=== PATIENT | female | born 1975 | race Caucasian/White ===

== ENCOUNTER 2025-02-04 09:15 | Day surgery (SDC) | payer BC ==
[~2025-02-04 09:15] MED LIST: Sodium Chloride 0.9% 10 ML Syringe FLUSH PRN; Sodium Chloride 0.9% 2.5 ML Syringe FLUSH PRN; Sodium Chloride 0.9% 20 ML SDV IV PRN
[2025-02-04] MEDS: Lactated Ringers 1,000 ML IV SCH (09:45)
[2025-02-04] MEDS ORDERED: Lidocaine 1% 5 ML VIAL ONE (10:37)
[2025-02-04] MEDS ORDERED: propofoL 500 MG/50 ML 50 ML ONE (10:38)
== END 2025-02-04 12:30 | disposition home or self-care (01) ==
LOC: MW.SDS 09:15
PROVIDERS: ATTEND Surgery
DX: Z12.11 Encounter for screening for malignant neoplasm of colon (principal); F41.1 Generalized anxiety disorder; Z80.0 Family history of malignant neoplasm of digestive organs; Z79.899 Other long term (current) drug therapy
CPT/HCPCS: 81025; J2003; J2704; J7120

== ENCOUNTER 2025-03-22 13:23 | Emergency (ER) | payer BC ==
[2025-03-22 14:45] LABS: CORONAVIRUS COVID-19 NAA NEGATIVE (NEGATIVE); INFLUENZA A NAA NEGATIVE (NEGATIVE); INFLUENZA B NAA NEGATIVE (NEGATIVE)
[2025-03-22] MEDS: Dexamethasone 4 MG Tab PO ONE (15:21)
== END 2025-03-22 16:42 | disposition home or self-care (01) ==
LOC: MW.ED 13:23
DX: J02.9 Acute pharyngitis, unspecified (principal); J06.9 Acute upper respiratory infection, unspecified; B34.9 Viral infection, unspecified; Z75.3 Unavailability and inaccessibility of health-care facilities; Z79.899 Other long term (current) drug therapy
CPT/HCPCS: 0240U; 36415; 71046; 86308; 87651; 96372; 99283; J1100; J8540

== ENCOUNTER 2025-08-09 18:44 | Emergency (ER) | payer BC ==
[2025-08-09] MEDS: Diphtheria,Pertussis(Acell),Tetanus Vaccine 0.5 ML Syringe IM ONE (19:31)
[2025-08-09] MEDS: Bacitracin Oint 1 GM U/D Packet TOP ONE (20:21)
== END 2025-08-09 20:49 | disposition home or self-care (01) ==
LOC: MW.ED 18:44
DX: S01.01XA Laceration without foreign body of scalp, initial encounter (principal); Z79.899 Other long term (current) drug therapy; W19.XXXA Unspecified fall, initial encounter
CPT/HCPCS: 12002; 90471; 90715; 99282-25; 99283

== ENCOUNTER 2025-08-26 15:05 | Emergency (ER) | payer BC | END 2025-08-26 15:26 | disposition left against medical advice (07) | LOC: MW.ED 15:05 | DX: S01.01XD Laceration without foreign body of scalp, subsequent encounter (principal); X58.XXXD Exposure to other specified factors, subsequent encounter | CPT/HCPCS: 99281 ==